=== PATIENT | female | born 1945 | race Caucasian/White ===

== ENCOUNTER → 2018-07-15 | Outpatient (CLI) | payer MEDICARE, OTHER | END | disposition home or self-care (01) | LOC: PCVCCLINIC 16:09 | PROVIDERS: ATTEND Internal Medicine Cardiovascular Disease | DX: R93.1 Abnormal findings on diagnostic imaging of heart and coronary circulation (principal); E78.5 Hyperlipidemia, unspecified; R09.89 Other specified symptoms and signs involving the circulatory and respiratory systems; R06.02 Shortness of breath; E78.00 Pure hypercholesterolemia, unspecified | CPT/HCPCS: 36415; 80061; 93005; G0463 ==

== ENCOUNTER → 2018-09-04 | Outpatient (CLI) | payer MEDICARE, OTHER ==
--- NOTE | 2018-09-04 12:38 | PCVCIMAG ---
APPROVED REPORT Laterality: Bilateral Indications Bruit Doppler Spectral Velocity Analysis PSV / EDVPSV / EDV ECA (R) 91 / 13 cm/sECA (L) 70 / 13 cm/s dICA (R) 70 / 28 cm/sdICA (L) 59 / 26 cm/s Soledad (R) 81 / 31 cm/smICA (L) 69 / 26 cm/s pICA (R) 57 / 23 cm/spICA (L) 67 / 25 cm/s Bulb (R) 63 / 19 cm/sBulb (L) 83 / 25 cm/s dCCA (R) 70 / 22 cm/sdCCA (L) 71 / 20 cm/s mCCA (R) 70 / 19 cm/smCCA (L) 86 / 26 cm/s Vert (R) 53 / 20 cm/sVert (L) 44 / 7 cm/s ICA/CCA 1.16ICA/CCA 0.97 Findings The right carotid bulb has no significant plaque. The right proximal internal carotid artery shows no significant stenosis. The right common carotid artery shows no significant stenosis. The right external carotid artery shows no significant stenosis. The left carotid bulb has no significant plaque. The left proximal internal carotid artery shows no significant stenosis. The left common carotid artery shows no significant stenosis. The left external carotid artery shows no significant stenosis. Conclusion 1. No significant stenosis involving either carotid artery. 2. Antegrade vertebral
--- NOTE | 2018-09-07 16:16 | PCVCIMAG ---
APPROVED REPORT Study performed: 09/04/2018 11:52:08 Exam: Stress Echocardiogram Indication: Dyspnea , CAD, cor ca+ elevated,hyperlipidemia Patient Location: Echo lab Stress Nurse: Rosalind Duran RN Room #: 2 Status: routine Ht: 5 ft 1 in HR: 99 bpm BP: 136/96 mmHg Rhythm: NSR Medical History Medical History: Hyperlipidemia Cardiac Risk Factors: Hyperlipidemia Previous Cardiac Procedures: none Pretest Chest Pain Characteristics: No chest pain Exercise History: Physically active Procedure The patient underwent an Exercise Stress Test using the Barrie Protocol. Blood pressure, heart rate, and EKG were monitored. An Echocardiogram was performed by ecg technician in four stages in quad fashion. At peak stress, four selected images were obtained and placed side by side with resting images for comparison. Stress Test Details Stress Test: Exercise stress testing was performed using a Barrie protocol. HR Resting HR: 99 bpmMax Heart Rate (APMHR): 149 bpm Max HR Achieved: 173 bpmTarget HR (85% APMHR): 126 bpm % of APMHR: 116 Recovery HR: 107 bpm HR response to stress: Normal HR response to stress BP Resting BP: 136/96 mmHg Max BP: 154/82 mmHg Recovery BP: 132/68 mmHg BP response to stress: Normal blood pressure response to stress. ECG Resting ECG: Sinus Rhythm Stress ECG: Sinus Rhythm ST Change: Non-ischemic Arrhythmia: APC's Recovery ECG: Sinus Rhythm Recovery ST Change: Non-ischemic Recovery Arrhythmia: APC Clinical Reason for Termination: Maximal effort Stress Symptoms: Leg Fatigue Exercise duration: 10 min 01 sec Highest Stage Achieved: Stage 4: 4.2 mph at 16% grade. Exercise capacity: 13.3 METs Overall Exercise Capacity for Age: Good Scale: Active Angina Score: None No complications. Stress ECG Conclusion The patient exercised according to the BARRIE protocol for 10:01 mins; achieving a work level of 13.3 METS. The resting heart rate of99 bpm hailee to a maximum heart rate of 173 bpm. This value represents 116 % of the maximal, age-predicted heart rate. The resting blood pressure of 136/96 mmHg, hailee to a maximum blood pressure of 154/82 mmHg. The exercise test was stopped due to fatigue. Pre-Stress Echo The resting Echocardiogram showed normal left ventricular contractility with an estimated Ejection Fraction of about 55-60%. Normal wall motion in all segments on baseline images. Post-Stress Echo The stress Echocardiogram showed normal left ventricular contractility with an estimated Ejection Fraction of about 65-70%. Normal augmentation of wall motion in all segments on post stress images. Clinical No clinical or ECG evidence for ischemia. Conclusion Clinical Response: Non-ischemic Exercise Capacity: Superior Stress ECG Response: Non-ischemic Stress Echo Images: Non-ischemic No clinical, EKG or echocardiographic evidence for ischemia. No echocardiographic evidence for exercise induced ischemia. Normal stress echocardiogram with maximal exercise stress. <Conclusion> No clinical, EKG or echocardiographic evidence for ischemia. No echocardiographic evidence for exercise induced ischemia. Normal stress echocardiogram with maximal exercise stress.
== END | disposition home or self-care (01) ==
LOC: PCVCIMAG 13:00
PROVIDERS: ATTEND Internal Medicine Cardiovascular Disease
DX: R09.89 Other specified symptoms and signs involving the circulatory and respiratory systems (principal); R93.1 Abnormal findings on diagnostic imaging of heart and coronary circulation; R06.02 Shortness of breath; I25.10 Atherosclerotic heart disease of native coronary artery without angina pectoris; E78.5 Hyperlipidemia, unspecified
CPT/HCPCS: 93325; 93351; 93880

== ENCOUNTER → 2019-06-08 | Outpatient (CLI) | payer MEDICARE, OTHER | END | disposition home or self-care (01) | LOC: PCVCCLINIC 09:55 | PROVIDERS: ATTEND Internal Medicine Cardiovascular Disease | DX: R93.1 Abnormal findings on diagnostic imaging of heart and coronary circulation (principal); E78.5 Hyperlipidemia, unspecified; E78.00 Pure hypercholesterolemia, unspecified; Z90.710 Acquired absence of both cervix and uterus; Z80.2 Family history of malignant neoplasm of other respiratory and intrathoracic organs; Z79.82 Long term (current) use of aspirin; Z82.49 Family history of ischemic heart disease and other diseases of the circulatory system; Z79.899 Other long term (current) drug therapy | CPT/HCPCS: 36415; 80061; 93005; G0463 ==